=== PATIENT | female | born 1970 ===

== ENCOUNTER 2020-06-16 10:41 | Inpatient (IN) | payer MEDICARE, MEDICAID ==
[~2020-06-16] VITALS: Ht 157.5 cm; Wt 63.8 kg
[2020-06-16] MEDS ORDERED: BISACODYL 10 MG SUPP PR PRN (13:30)
[2020-06-16] MEDS ORDERED: POLYETHYLENE GLYCOL 17 GM PACKET PO PRN (13:30)
[2020-06-16] MEDS ORDERED: ONDANSETRON ODT 4 MG PO PRN (13:30)
[2020-06-16] MEDS ORDERED: DOCUSATE 100 MG CAPSULE PO PRN (13:30)
[2020-06-16] MEDS ORDERED: PLEASE ENTER HEIGHT AND WEIGHT MC SCH (14:30)
[2020-06-16 16:24] VITALS: BP 113/74
[2020-06-16] MEDS ORDERED: [UNRECOGNIZED DRUG - OTHER] (17:27)
[2020-06-16] MEDS ORDERED: PANT20TA4 PO (17:27)
[2020-06-16 18:06] VITALS: BP 113/74
[2020-06-16 19:50] VITALS: BP 109/71
[2020-06-17] MEDS: ALBUTEROL HFA 90 MCG/SPRAY INH PRN (03:45)
[2020-06-17] MEDS: PANTOPRAZOLE 20MG TABLET PO SCH (06:02)
[2020-06-17 06:43] LABS: CHOL/HDL RATIO 2.6; LDL/HDL RATIO 1.5 (0.5-3.0)
[2020-06-17 07:00] VITALS: BP 99/64
[2020-06-17] MEDS: ESCITALOPRAM 10MG TABLET PO SCH (10:24)
[2020-06-17] MEDS: NICOTINE GUM 2 MG BC PRN (17:35)
[2020-06-17 19:49] VITALS: BP 111/72
[2020-06-17] MEDS: ACETAMINOPHEN 325 MG TABLET PO PRN (20:28)
[2020-06-18] MEDS: ACETAMINOPHEN 325 MG TABLET PO PRN ×3 (05:26→21:56)
[2020-06-18] MEDS: PANTOPRAZOLE 20MG TABLET PO SCH (05:26)
[2020-06-18 07:46] VITALS: BP 103/64
[2020-06-18] MEDS: ESCITALOPRAM 10MG TABLET PO SCH (09:27)
[2020-06-18] MEDS: NICOTINE GUM 2 MG BC PRN (09:29)
[2020-06-18] MEDS: ALBUTEROL HFA 90 MCG/SPRAY INH PRN (13:27)
[2020-06-18 19:10] VITALS: BP 128/51
[2020-06-19] MEDS: PANTOPRAZOLE 20MG TABLET PO SCH (06:07)
[2020-06-19 07:40] VITALS: BP 117/75
[2020-06-19] MEDS: ESCITALOPRAM 10MG TABLET PO SCH (07:46)
[2020-06-19] MEDS: ACETAMINOPHEN 325 MG TABLET PO PRN ×3 (09:19→22:42)
[2020-06-19] MEDS: ALBUTEROL HFA 90 MCG/SPRAY INH PRN (09:20)
[2020-06-19] MEDS: NICOTINE GUM 2 MG BC PRN ×2 (11:06→18:36)
[2020-06-19 20:00] VITALS: BP 113/70
[2020-06-20] MEDS: ACETAMINOPHEN 325 MG TABLET PO PRN ×3 (06:19→22:34)
[2020-06-20] MEDS: PANTOPRAZOLE 20MG TABLET PO SCH (06:19)
[2020-06-20 07:50] VITALS: BP 107/61
[2020-06-20] MEDS: ESCITALOPRAM 10MG TABLET PO SCH (09:12)
[2020-06-20] MEDS: NICOTINE GUM 2 MG BC PRN ×2 (09:29→17:06)
[2020-06-20] MEDS ORDERED: PANT20TA4 PO (13:50)
[2020-06-20] MEDS ORDERED: HYDR-826 PO (13:50)
[2020-06-20] MEDS ORDERED: ESCI10TA97 PO (13:50)
[2020-06-20 19:09] VITALS: BP 104/65
[2020-06-20] MEDS: ALBUTEROL HFA 90 MCG/SPRAY INH PRN (22:14)
[2020-06-21] MEDS: PANTOPRAZOLE 20MG TABLET PO SCH (06:36)
[2020-06-21 07:52] VITALS: BP 124/72
[2020-06-21] MEDS: NICOTINE GUM 2 MG BC PRN (08:21)
[2020-06-21] MEDS: ESCITALOPRAM 10MG TABLET PO SCH (08:21)
[2020-06-21] MEDS: ACETAMINOPHEN 325 MG TABLET PO PRN (08:21)
== END 2020-06-21 09:45 | disposition home or self-care (01) | DRG 885 ==
LOC: 3E 13:46
PROVIDERS: ADMIT Psychiatry & Neurology Psychosomatic Medicine; ATTEND Psychiatry & Neurology Psychosomatic Medicine
DX: F32.2 Major depressive disorder, single episode, severe without psychotic features (principal); R45.851 Suicidal ideations; K21.9 Gastro-esophageal reflux disease without esophagitis; K44.9 Diaphragmatic hernia without obstruction or gangrene; F10.21 Alcohol dependence, in remission; F12.10 Cannabis abuse, uncomplicated; F17.210 Nicotine dependence, cigarettes, uncomplicated; J44.9 Chronic obstructive pulmonary disease, unspecified; M79.7 Fibromyalgia; Z98.84 Bariatric surgery status; J45.909 Unspecified asthma, uncomplicated; Z79.899 Other long term (current) drug therapy; Z90.710 Acquired absence of both cervix and uterus; Z88.1 Allergy status to other antibiotic agents; Z88.8 Allergy status to other drugs, medicaments and biological substances; Z88.0 Allergy status to penicillin; Z56.0 Unemployment, unspecified
CPT/HCPCS: 36415; 71045; 80061; 84439; 84443; 93005; 94640; Q0177